=== PATIENT | female | born 1975 | race Caucasian/White ===

== ENCOUNTER 2022-06-21 14:05 | Emergency (ER) | payer MEDICAID ==
[~2022-06-21] VITALS: Ht 162.6 cm; Wt 64.0 kg
[2022-06-21 14:26] VITALS: BP 96/61
== END 2022-06-21 18:24 | disposition left against medical advice (07) ==
LOC: ER 14:05
DX: J02.9 Acute pharyngitis, unspecified (principal)
CPT/HCPCS: 99281